=== PATIENT | female | born 1985 | race Caucasian/White ===

== ENCOUNTER 2016-05-15 07:25 | Inpatient (IN) ==
[2016-05-15] MEDS ORDERED: CLINDAMYCIN INJ 900 MG in PREMIX 1 EACH IV ONE (07:31)
[2016-05-15] MEDS ORDERED: CITRIC ACID/SODIUM CITRATE 30 ML UDCUP PO ONE (07:31)
[2016-05-15] MEDS ORDERED: FAMOTIDINE 20 MG/2 ML VIAL IV ONE (07:31)
[2016-05-15] MEDS ORDERED: OXYTOCIN/LR 20 UNIT/1,000 ML BAG IV ONE ×2 (07:35→12:21)
[2016-05-15 08:49] LABS: Basophils % 0.2 % (0.0-0.8); Hematocrit 33.9 VOL% (35.7-47.0); Hemoglobin 10.7 GM/DL (12.0-16.0); Immature Granulocytes % 3.5 %; Lymphocytes # 2.9 10*3/uL (1.4-4.0); Lymphocytes % 25.8 % (21.3-54.2); Mean Corpuscular HGB Conc 31.6 GM/DL (32-36); Mean Corpuscular Hemoglobin 27 PG (27-34); Mean Corpuscular Volume 86.7 FL (87-102); Monocytes # 0.8 10*3/uL (0.11-0.8); Monocytes % 6.9 % (1.7-12.7); Neutrophils # 7.2 10*3/uL (1.4-7.4); Neutrophils % 63.6 % (38.7-73.9); Platelet Count 292 T/CUMM (130-400); Red Blood Count 3.91 MC/CUMM (3.8-5.5); Red Cell Distribution Width 14.5 % (9.3-17.3); White Blood Count 11.3 T/CUMM (4-12)
[2016-05-15] MEDS: LACTATED RINGERS 1,000 ML IV SCH ×3 (09:30→19:25)
[2016-05-15 09:40] LABS: Albumin 3.1 G/DL (3.4-5.0); Bilirubin,Total 0.7 MG/DL (0.2-1.0); Calcium 8.8 MG/DL (8.5-10.1); Osmolality,Calculated 280.1 MOS/KG (273-304); Potassium 3.8 MMOL/L (3.5-5.1); Total Protein 6.3 G/DL (6.4-8.3)
[2016-05-15] MEDS ORDERED: ONDANSETRON 4 MG/2 ML VIAL ONE (11:12)
[2016-05-15] MEDS ORDERED: PHENYLEPHRINE 1 MG/10 ML SYRINGE IV ONE (11:12)
[2016-05-15] MEDS ORDERED: PROPOFOL 200 MG/20 ML VIAL IV ONE (11:12)
--- NOTE | 2016-05-15 11:26 | History and Physical Update ---
History and Physical Update - History and Physical H&P was reviewed, the patient examined and there: are no changes in the patients condition since last H&P was completed. - Dictation Physical: refer to scanned H&P - Physical Exam Mental Status: alert and oriented Heart: regular rate and rhythm Lung: clear to auscultation Abdomen: within normal limits Vitals: within normal limits History and Physical Changes: Pt is at 37 wks with hx of previous C/S x 2-first with a J incision to extend the myotomy; the second with a midline vertical extension required. Plan repeat C/S today. Pt specifically declines BTL despite my recommendations. She understands my concerns for another and states her is planning vasectomy.
[2016-05-15] MEDS ORDERED: RHO(D) IMMUNE GLOBULIN 300 MCG SYRINGE IM ONE (12:21)
[2016-05-15] MEDS ORDERED: IBUPROFEN 800 MG TABLET PO PRN (12:21)
[2016-05-15] MEDS ORDERED: ACETAMINOPHEN 325 MG TABLET PO PRN (12:21)
[2016-05-15] MEDS ORDERED: ONDANSETRON 4 MG/2 ML VIAL IV PRN (12:21)
[2016-05-15] MEDS ORDERED: MORPHINE 10 MG/10 ML VIAL ONE (12:28)
--- NOTE | 2016-05-15 12:37 | Anesthesia ---
Anesthesia Post OP - Post Ansesthetic Evaluation Patient seen in post op: Yes Resp: within normal limits CV: within normal limits Mental: within normal limits Temp: within normal limits [id number]: within normal limits Nausea and Vomiting: within normal limits Pain: within normal limits
[2016-05-15 15:26] LABS: Apearance,Urine Slightly Hazy (Clear); Bilirubin,Urine Negative (Negative); Blood, Urine Small mg/dL (Negative); Glucose,Urine (UA) Negative (Negative); Ketones,Urine 5 mg/dL (Negative); Mucus,Urine Occasional /LPF (Occasional); Nitrite,Urine Negative (Negative); Protein,Urine 30 MG/DL; RBC,Urine 33 /HPF (0-4); Squamous Epithelial Cell,Urine Occasional /HPF (0-10); Urine Color Yellow (Yellow); Urine Specific Gravity 1.017 (1.001-1.035); Urine Urobilinogen < 2.0 EU/DL (0.2-1.0); WBC,Urine 1 /HPF (0-6)
[2016-05-15] MEDS ORDERED: diphenhydrAMINE 50 MG/1 ML VIAL IV PRN (15:52)
[2016-05-15] MEDS ORDERED: hydrOXYzine HCL 25 MG/1 ML VIAL IM PRN (17:50)
[2016-05-15] MEDS ORDERED: HydrOXYzine PAMOATE 25 MG CAPSULE PO PRN (17:58)
[2016-05-16] MEDS: oxyCODONE/ACETAMINOPHEN 5-325 MG TABLET PO PRN ×3 (04:00→19:56)
[2016-05-16] MEDS: LACTATED RINGERS 1,000 ML IV SCH (04:32)
[2016-05-16 06:55] LABS: Basophils % 0.3 % (0.0-0.8); Eosinophils # 0.1 10*3/uL (0.0-0.87); Eosinophils % 0.9 % (0.00-10.9); Hemoglobin 10.5 GM/DL (12.0-16.0); Immature Granulocytes % 1.9 %; Immature Granulocytes Absolute 0.22 #; Lymphocytes # 2.5 10*3/uL (1.4-4.0); Lymphocytes % 21.6 % (21.3-54.2); Mean Corpuscular HGB Conc 30.9 GM/DL (32-36); Mean Corpuscular Hemoglobin 27 PG (27-34); Mean Corpuscular Volume 88.8 FL (87-102); Mean Platelet Volume 10.1 FL (9.6-12.0); Monocytes % 8.3 % (1.7-12.7); Neutrophils # 7.9 10*3/uL (1.4-7.4); Platelet Count 262 T/CUMM (130-400); Red Blood Count 3.83 MC/CUMM (3.8-5.5); Red Cell Distribution Width 14.6 % (9.3-17.3); White Blood Count 11.7 T/CUMM (4-12)
[2016-05-16] MEDS: DOCUSATE SODIUM 100 MG CAPSULE PO SCH ×3 (07:16→20:02)
[2016-05-16] MEDS: MULTIVITAMIN (PRENATAL) TABLET PO SCH (10:02)
--- NOTE | 2016-05-16 11:22 | Pathology Report from [facility] ---
ACCESSION # : [id number] PATIENT NAME : Kenneth Barba ORDERING DR : OWEN BARRIENTOS CLINICAL HX: IUP @ 36.1 weeks gestation. Previous with T incision x 2. POST-OP DX: Same SPECIMEN INFO: Placenta GROSS DESCRIPTION: Received fresh labeled with the patient's name and consists of a 578 gram placenta measuring 22.1 x 16.5 x 2.4 cm. membranes are pink -dodd, opaque with adherent clotted blood present. The umbilical cord is centrally inserted, contains three vessels and measures 34.6 cm. The surface is blue-valdivia with peripheral sub chorionic fibrin present. The maternal surface is hemorrhagic with adherent clotted blood and scattered calcifications present. No gross abnormalities on sectioning. Sections submitted: A membranes and cord, B and maternal surfaces. DIAGNOSIS FOR KENNETH BARBA: Three vessel umbilical cord.Unremarkable placental membranes.Unremarkable third trimester placental chorionic villi with focal infarction and scattered microcalcifications. SERVICE DATE: 05/15/2016 REPORT DATE: 05/16/2016 PATHOLOGIST: Castillo Stiles M.D. [facility]
[2016-05-16] MEDS: BISACODYL 10 MG SUPP RECTAL PRN (16:45)
[2016-05-16] MEDS: SIMETHICONE CHEW 80 MG TABLET PO PRN (19:56)
[2016-05-16] MEDS: MAGNESIUM HYDROXIDE SUSP 30 ML UDCUP PO PRN (19:56)
[2016-05-17] MEDS: oxyCODONE/ACETAMINOPHEN 5-325 MG TABLET PO PRN ×3 (00:20→16:32)
[2016-05-17] MEDS: SIMETHICONE CHEW 80 MG TABLET PO PRN ×3 (02:29→20:00)
[2016-05-17] MEDS: MULTIVITAMIN (PRENATAL) TABLET PO SCH (09:37)
[2016-05-17] MEDS: DOCUSATE SODIUM 100 MG CAPSULE PO SCH ×2 (09:37→20:00)
[2016-05-17] MEDS: MAGNESIUM HYDROXIDE SUSP 30 ML UDCUP PO PRN (09:37)
[2016-05-17] MEDS: BISACODYL 10 MG SUPP RECTAL PRN (15:20)
[2016-05-18] MEDS: oxyCODONE/ACETAMINOPHEN 5-325 MG TABLET PO PRN ×2 (01:05→09:05)
[2016-05-18 07:11] VITALS: BP 135/79
[2016-05-18] MEDS: DOCUSATE SODIUM 100 MG CAPSULE PO SCH (09:00)
[2016-05-18] MEDS: MULTIVITAMIN (PRENATAL) TABLET PO SCH (09:00)
--- NOTE | 2016-06-06 23:52 | Discharge Summary ---
Hospital Course - Hospital Course Hospital Course: Pt underwent repeat C/S without complication. Her postop/ course was unremarkable except that she did very well. Specialty Discharge - Follow Up or Referrals Follow up with: Gricelda Griffin DO [Physician] - (Keep follow up appointment as scheduled) Discharge Plan - Discharge Data Condition at Discharge: Stable Discharge Diet: regular diet Activity: other (pelvic rest x 6 wks) Hygiene: may shower Weight Bearing at Discharge: full weight bearing Driving: not until seen by doctor Contact your physician if you experience:: fever over 101, Difficulty voiding, Redness or swelling, Nausea/Vomiting, Shortness of breath, Bleeding, pain uncontrolled by pain medications - Discharge Medications No Action Levothyroxine Tab [Synthroid Tab] 200 mcg PO DAILY@0700 - Follow Up or Referral Follow Up: Gricelda Griffin DO [Physician] - (Keep follow up appointment as scheduled) - Forms/Instructions Instructions: Section (DC), Surgical Site Infections (GEN), Bleeding (DC) Exam - Constitutional General appearance: normal weight, no acute distress - Head Head exam: Present: normal inspection, normocephalic - Respiratory Respiratory exam: Present: clear to auscultation bilaterally - Cardiovascular Cardiovascular exam: Present: regular rate and rhythm - GI/Abdominal GI/Abdominal exam: Present: soft (fundus firm, nontender; Incision intact without E/I/D) - Neurological Exam Neurological exam: Present: alert, oriented X3 - Psychiatric Psychiatric exam: Present: normal affect, normal mood - Skin Skin exam: Present: normal color, warm DS: Provider Date of admission: 05/15/16 07:25 Primary care physician: . No PCP Attending physician on admission: Gricelda Griffin DO Consults: 05/15/16 07:31 Consult to Anesthesiology [CONS] Routine Consulting Provider: Reason for Anesthesiology: Pre-op Clearance 05/15/16 12:21 Consult to [employer] [CONS] Routine Consult [employer]or: Breast Feeding Discharging clinician: Gricelda Griffin DO Expected date of discharge: 05/18/16
== END 2016-05-18 12:55 | disposition home or self-care (01) | DRG 766 ==
LOC: N.LD 07:25 → N.OB 15:23
PROVIDERS: ADMIT Obstetrics & Gynecology; ATTEND Obstetrics & Gynecology
PROC: LDCSECT (ICD-10-PCS; 2016-05-15 11:45)

== ENCOUNTER 2021-08-01 06:10 | Inpatient (IN) ==
[2021-08-01] MEDS: LACTATED RINGERS 1,000 ML IV SCH (07:46)
[2021-08-01] MEDS ORDERED: miSOPROStoL 200 MCG TABLET RECTAL PRN (08:09)
[2021-08-01] MEDS ORDERED: CLINDAMYCIN INJ 900 MG/50 ML PREMIX IV ONE (08:09)
[2021-08-01] MEDS ORDERED: CARBOPROST TROMETHAMINE 250 MCG/ML AMP IM PRN (08:09)
[2021-08-01] MEDS ORDERED: FAMOTIDINE 20 MG/2 ML VIAL IV ONE (08:09)
[2021-08-01] MEDS ORDERED: TRANEXAMIC ACID 1,000 MG in SODIUM CHLORIDE 0.9% 100 ML IV PRN (08:09)
[2021-08-01] MEDS ORDERED: OXYTOCIN/LR 20 UNIT/1,000 ML BAG IV ONE ×3 (08:09→14:39)
[2021-08-01] MEDS ORDERED: CITRIC ACID/SODIUM CITRATE 30 ML UDCUP PO ONE (08:09)
[2021-08-01] MEDS ORDERED: METHYLERGONOVINE 0.2 MG/1 ML AMP IM PRN (08:09)
[2021-08-01 08:34] LABS: Basophils % 0.4 % (0.0-0.8); Eosinophils # 0.1 10*3/uL (0.0-0.87); Eosinophils % 1.3 % (0.00-10.9); Hematocrit 35.9 VOL% (35.7-47.0); Hemoglobin 11.5 GM/DL (12.0-16.0); Immature Granulocytes % 1.5 %; Immature Granulocytes Absolute 0.14 #; Lymphocytes # 2.9 10*3/uL (1.4-4.0); Lymphocytes % 30.9 % (21.3-54.2); Mean Corpuscular Volume 87.8 FL (87-102); Mean Platelet Volume 9.2 FL (9.6-12.0); Monocytes # 0.5 10*3/uL (0.11-0.8); Monocytes % 5.4 % (1.7-12.7); Neutrophils % 60.5 % (38.7-73.9); Platelet Count 313 T/CUMM (130-400); Red Blood Count 4.09 MC/CUMM (3.8-5.5); White Blood Count 9.5 T/CUMM (4-12)
[2021-08-01 08:55] LABS: Bilirubin,Total 0.6 MG/DL (0.20-1.00); Calcium 9.4 MG/DL (8.5-10.1); Osmolality,Calculated 271.8 MOS/KG (273-304); Potassium 4.3 MMOL/L (3.5-5.1)
[2021-08-01] MEDS ORDERED: ONDANSETRON 4 MG/2 ML VIAL ONE (09:41)
[2021-08-01] MEDS ORDERED: KETOROLAC 30 MG/1 ML VIAL ONE (09:41)
[2021-08-01] MEDS ORDERED: BUPIVACAINE SPINAL 0.75% 2 ML AMP SPINAL ONE (09:41)
[2021-08-01] MEDS ORDERED: buprenorphine HCL 0.3 MG/ML VIAL ONE (09:41)
[2021-08-01] MEDS ORDERED: ACETAMINOPHEN INJ 1,000 MG/100 ML VIAL IV ONE (09:41)
[2021-08-01] MEDS ORDERED: DEXAMETHASONE 4 MG/1 ML VIAL ONE ×2 (09:41→10:04)
[2021-08-01] MEDS ORDERED: PHENYLEPHRINE 1 MG/10 ML SYRINGE IV ONE ×2 (10:04→10:46)
[2021-08-01] MEDS ORDERED: LACTATED RINGERS 1,000 ML IV ONE (10:04)
[2021-08-01 10:51] LABS: Cord Arterial Blood HCO3 21.9 MMOL/L
[2021-08-01 10:53] LABS: Cord Venous Blood HCO3 23.3 MMOL/L; Cord Venous Blood PCO2 47.5 MMHG; Cord Venous Blood PO2 28.1
[2021-08-01 10:58] LABS: Mucus,Urine Occasional /LPF (Occasional); RBC,Urine <1 /HPF (0-4); Squamous Epithelial Cell,Urine Occasional /HPF (0-10)
[2021-08-01 10:59] LABS: Bilirubin,Urine Negative (Negative); Blood, Urine Negative (Negative); Glucose,Urine (UA) Negative (Negative); Ketones,Urine 80 mg/dL (Negative); Nitrite,Urine Negative (Negative); Protein,Urine Negative (Negative); Urine Appearance Clear (Clear); Urine Color Yellow (Yellow); Urine Urobilinogen 0.2 eU/dL (<2.0)
[2021-08-01] MEDS ORDERED: RHO(D) IMMUNE GLOBULIN 300 MCG SYRINGE IM ONE (14:39)
[2021-08-01] MEDS ORDERED: ACETAMINOPHEN 325 MG TABLET PO PRN (14:39)
[2021-08-01] MEDS ORDERED: ONDANSETRON 4 MG/2 ML VIAL IV PRN (14:39)
[2021-08-01] MEDS ORDERED: MAGNESIUM HYDROXIDE SUSP 30 ML UDCUP PO PRN (14:39)
[2021-08-01] MEDS ORDERED: LACTATED RINGERS 1,000 ML IV SCH (15:00)
[2021-08-01] MEDS: ACETAMINOPHEN 500 MG TABLET PO SCH ×2 (16:55→23:13)
[2021-08-01] MEDS: KETOROLAC 30 MG/1 ML VIAL IV SCH ×2 (16:57→23:14)
[2021-08-01] MEDS: CLINDAMYCIN INJ 900 MG/50 ML PREMIX IV SCH (17:55)
[2021-08-02] MEDS: CLINDAMYCIN INJ 900 MG/50 ML PREMIX IV SCH (01:58)
[2021-08-02] MEDS: LACTATED RINGERS 1,000 ML IV SCH (05:03)
[2021-08-02 05:05] LABS: Basophils % 0.2 % (0.0-0.8); Eosinophils # 0.1 10*3/uL (0.0-0.87); Eosinophils % 0.7 % (0.00-10.9); Hematocrit 30.5 VOL% (35.7-47.0); Lymphocytes # 2.6 10*3/uL (1.4-4.0); Lymphocytes % 27.2 % (21.3-54.2); Mean Corpuscular HGB Conc 32.8 GM/DL (32-36); Mean Corpuscular Volume 87.6 FL (87-102); Mean Platelet Volume 9.5 FL (9.6-12.0); Monocytes # 0.6 10*3/uL (0.11-0.8); Monocytes % 6.3 % (1.7-12.7); Neutrophils % 64.6 % (38.7-73.9); Platelet Count 255 T/CUMM (130-400); Red Blood Count 3.48 MC/CUMM (3.8-5.5); Red Cell Distribution Width 15.5 % (9.3-17.3); White Blood Count 9.6 T/CUMM (4-12)
[2021-08-02] MEDS: KETOROLAC 30 MG/1 ML VIAL IV SCH ×3 (05:05→16:36)
[2021-08-02] MEDS: ACETAMINOPHEN 500 MG TABLET PO SCH ×3 (05:05→16:37)
[2021-08-02] MEDS: DOCUSATE SODIUM 100 MG CAPSULE PO SCH ×3 (08:15→21:04)
[2021-08-02] MEDS: MULTIVITAMIN (PRENATAL) TABLET PO SCH (08:16)
[2021-08-02] MEDS: IBUPROFEN 800 MG TABLET PO PRN (16:47)
[2021-08-02] MEDS ORDERED: BISACODYL 10 MG SUPP RECTAL PRN (16:48)
[2021-08-02 17:33] VITALS: BP 132/81
[2021-08-02] MEDS: SIMETHICONE CHEW 80 MG TABLET PO PRN (21:06)
[2021-08-03] MEDS: IBUPROFEN 800 MG TABLET PO PRN ×2 (02:04→12:06)
[2021-08-03] MEDS: DOCUSATE SODIUM 100 MG CAPSULE PO SCH (08:35)
[2021-08-03] MEDS: MULTIVITAMIN (PRENATAL) TABLET PO SCH (08:36)
[2021-08-03] MEDS: SIMETHICONE CHEW 80 MG TABLET PO PRN (08:37)
== END 2021-08-03 14:10 | disposition home or self-care (01) | DRG 783 ==
LOC: N.LD 06:10
PROVIDERS: ADMIT Obstetrics & Gynecology; ATTEND Obstetrics & Gynecology